=== PATIENT | male | born 1975 | race Caucasian/White ===

== ENCOUNTER 2021-02-25 11:21 | Emergency (ER) | payer OTHER ==
[~2021-02-25] VITALS: Ht 193 cm; Wt 120.2 kg
[2021-02-25 12:02] VITALS: BP 128/82
== END 2021-02-25 12:03 | disposition left against medical advice (07) ==
LOC: ER 11:21
DX: R51.9 Headache, unspecified (principal); Z53.21 Procedure and treatment not carried out due to patient leaving prior to being seen by health care provider; Z88.0 Allergy status to penicillin